=== PATIENT | female | born 1960 | race Caucasian/White ===

== ENCOUNTER → 2016-08-10 | Outpatient (CLI) | payer OTHER ==
[~2016-08-10] MED LIST: ADVIN10/60 INH; ALBU18002 INH; ALBUAER19 INH; ATOR-22 PO; BUPR-102 PO; BUPR-79 PO; CONJ.6255 PO; ERGO1CAP41 PO; EZET10TA66 PO; GLCSR/500 PO; LEVO112T2 PO; LEVO112T4 PO; LPR25 PO; ONDA4TAB7 SL; PANT40TA PO; PRT/40 PO; RANI300T PO; TELM1TAB8 PO; TELM40TA PO
[2016-08-10 12:47] LABS: ALT/SGPT 34 U/L (12-78); BLOOD UREA NITROGEN 18 mg/dl (7-18); BUN/CREATININE RATIO 20.1 (10-20); CALCIUM 9.4 mg/dl (8.5-10.1); CARBON DIOXIDE 25 mmol/L (21-32); CHLORIDE 103 mmol/L (98-107); CHOLESTEROL 200 mg/dl (0-200); CREATININE 0.88 mg/dl (0.60-1.20); ESTIMATED AVERAGE GLUCOSE 143 mg/dl; GLUCOSE 136 mg/dl (70-99); HA1C FLAG Normal (Normal); POTASSIUM 4.5 mmol/L (3.5-5.1); SODIUM 137 mmol/L (136-145); TRIGLYCERIDES 134 mg/dl (0-150); VERY LOW DENSITY LIPOPROT CALC 27 mg/dl
[2016-08-10 12:57] LABS: ALB/GLOB RATIO 1.2 (0.9-2); ALKALINE PHOSPHATASE 126 U/L (45-117); AST/SGOT 22 U/L (15-37); CHOLESTEROL/HDL RATIO 3.4; HDL CHOLESTEROL 58 mg/dl; LDL CHOLESTEROL CALCULATED 115 mg/dl; THYROID STIMULATING HORMONE 0.326 uIu/ml (0.300-4.500)
== END | disposition home or self-care (01) ==
LOC: C.LABBFT 07:42
PROVIDERS: ATTEND Internal Medicine
DX: E11.9 Type 2 diabetes mellitus without complications (principal); E55.9 Vitamin D deficiency, unspecified

== ENCOUNTER → 2016-11-10 | Outpatient (CLI) | payer OTHER ==
[~2016-11-10] MED LIST changes: -ERGO1CAP41 PO; +ERGO500011 PO; +PANT40TA2 PO; -PRT/40 PO
--- NOTE | 2016-11-10 14:10 | MAMMOGRAPHY REPORT ---
UNILATERAL LEFT DIGITAL DIAGNOSTIC MAMMOGRAM TOMOSYNTHESIS WITH CAD AND TARGETED LEFT ULTRASOUND: CLINICAL HISTORY: The patient reports intermittent left breast pain for approximately 2-3 months, wh ich is predominantly in the lateral breast and behind the nipple. She denies any nipple discharge o r palpable lumps. TECHNIQUE: Breast tomosynthesis in addition to standard 2D mammography was performed. Current study was also evaluated with a Computer Aided Detection (CAD) system. Left CC and MLO 2-D and tomosynth esis images were obtained. COMPARISON: Comparison is made to exams dated: 05/25/2016 mammogram, 09/24/2014 mammogram, 3 mammogram - [facility], and 08/23/2008. BREAST COMPOSITION: The tissue of the left breast is almost entirely fatty. FINDINGS: There are no suspicious masses, calcifications, or areas of architectural distortion seen mammographically. There has been no significant interval change compared to prior exams. Targeted ultrasound was performed of the areas of pain pointed out by the patient, involving the lef t lateral breast from approximately 2 to 4:00, centered around 7 cm from the nipple, as well as the left subareolar breast. Sonographically normal tissue is seen in these regions, without evidence of a mass or other suspicious sonographic abnormality. IMPRESSION: ACR BI-RADS CATEGORY 1: NEGATIVE, TARGETED ULTRASOUND ACR BI-RADS CATEGORY 1: NEGATIVE No suspicious mammographic or sonographic abnormality at the site of left breast pain pointed out by the patient. There is no mammographic or targeted sonographic evidence of malignancy. Recommend c linical follow-up for left breast pain, and recommend routine bilateral screening mammograms which a re due May 2017. The patient has been verbally notified of the results. Approximately 10% of breast cancers are not detected with mammography. A negative mammographic repor t should not delay biopsy if a clinically suggestive mass is present. Nina Espinoza M.D. 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
== END | disposition home or self-care (01) ==
LOC: C.MAMM 07:58
PROVIDERS: ATTEND Nurse Practitioner
DX: N64.4 Mastodynia (principal)

== ENCOUNTER 2017-01-07 09:34 | Emergency (ER) | payer OTHER ==
[~2017-01-07] VITALS: Ht 170.2 cm; Wt 118.0 kg
[~2017-01-07 09:34] MED LIST changes: -ALBU18002 INH; -BUPR-102 PO; -ERGO500011 PO; -EZET10TA66 PO; -GLCSR/500 PO; -LEVO112T4 PO; -PANT40TA2 PO; -RANI300T PO; -TELM1TAB8 PO
[2017-01-07 09:43] VITALS: TEMP 36.8; Ht 170.2 cm; Wt 118.0 kg
[2017-01-07] MEDS ORDERED: LORAZEPAM 0.5 MG TAB SL STA (09:43)
[2017-01-07] MEDS ORDERED: NITROGLYCERIN 0.4 MG SL PER TAB CHARGE SL STA (09:43)
[2017-01-07] MEDS ORDERED: GI COCKTAIL PO STA (09:43)
[2017-01-07] MEDS ORDERED: LIDOCAINE HCL 2% VISC SOLN 20 ML UDC ONE (09:47)
[2017-01-07] MEDS ORDERED: ALUMINUM/MAGNESIUM SUSP 30 ML UDC ONE (09:47)
[2017-01-07 10:00] LABS: BASO % 0.6 %; BASO ABS # 0.03 K/uL (0-0.2); COMPLETE YES; EOS % 2.5 %; HEMATOCRIT 42.1 % (37-47); LYMPH % 38.3 %; LYMPH ABS # 2.01 K/uL (1.2-3.4); MEAN CELL VOLUME 84.9 fL (80-100); MEAN CORPUSCULAR HEMOGLOBIN 28.8 pg (25-34); MEAN PLATELET VOLUME 10.1 fL (7.4-10.4); MONO % 6.3 %; NEUT % 52.3 %; PLATELET COUNT 223 K/uL (130-400); RED BLOOD COUNT 4.96 M/uL (4.2-5.4); WHITE BLOOD COUNT 5.25 K/uL (4.8-10.8)
--- NOTE | 2017-01-07 10:00 | DIAGNOSTIC IMAGING REPORT ---
CHEST ONE VIEW PORTABLE CLINICAL HISTORY: Chest pain, back pain and shortness of breath. COMPARISON STUDY: Chest radiograph February 07, 2015. FINDINGS: Lung volumes are normal. No pneumothorax or pleural effusion is present. Pulmonary vascularity is normal. Cardiac size is normal. There is no evidence of pulmonary edema. No consolidation is identified. There may be calcific tendinitis of the bilateral rotator cuffs. IMPRESSION: No acute cardiopulmonary findings. Electronically signed by: Nicolas Abdi M.D. 01/07/2017 9:59 AM Dictated Date/Time: 01/07/2017 9:58 AM
[2017-01-07] MEDS ORDERED: LABETALOL HCL IV 5 MG/ML 20ML IV STA (10:03)
--- NOTE | 2017-01-07 10:07 | EMERGENCY ROOM VISIT NOTE ---
History Report prepared by Kim: Elmo Roy Under the Supervision of: Dr. Pola Hernandez M.D. First contact with patient: 09:35 Stated Complaint: CHEST PAIN/BACK PAIN/SOB History of Present Illness The patient is a 56 year old female who presents to the Emergency Room with complaints of intermittent sharp left upper back pain starting this morning. The patient states she additionally had some shortness of breath, nausea, and she was very pale. She states that she is currently less nauseous. The patient denies any aortic problems, leg swelling, calf pain, family or medical history of blood clots, recent travel, and any recent surgeries. Source of History: patient Onset: this morning Position: back (upper) Quality: sharp Timing: intermittent Associated Symptoms: + SOB, + nausea Review of Systems See HPI for pertinent positives & negatives. A total of 10 systems reviewed and were otherwise negative. Past Medical & Surgical Medical Problems: (1) SVT (supraventricular tachycardia) Family History Diabetes mellitus FHx: cancer Hypertension Social History Smoking Status: Never Smoker Marital Status: Housing Status: lives with family Occupation Status: unemployed Current/Historical Medications Scheduled Bupropion Hcl (Smoking Deterre (Bupropion Hcl Sr), 1 TAB PO BID Ergocalciferol (Vitamin D 09384 Unit), 1 CAP PO 2XWK Ezetimibe (Ezetimibe), 1 TAB PO DAILY Levothyroxine Sodium (Levothyroxine Sodium), 1 TAB PO DAILYBB Metformin HCl (Metformin HCl ER), 1 TAB PO BID Metoprolol Tartrate (Lopressor), 25 MG PO BID Pantoprazole (Pantoprazole Sodium), 1 TAB PO DAILY Ranitidine Hcl (Zantac), 1 TAB PO HS Telmisartan (Telmisartan), 1 TAB PO DAILY Scheduled PRN Albuterol Sulfate (Proair Respiclick), 2 PUFFS INH BID PRN for SOB/Wheezing Fluticasone Prop/Salmeterol (Advair Diskus 100/50 60 Dose), 1 PUFF INH BID PRN for cough/sob Allergies Coded Allergies: Amoxicillin (Verified Adverse Reaction, Unknown, nausea, 01/07/17) Diphenhydramine (Verified Adverse Reaction, Unknown, hyper, 01/07/17) Physical Exam Vital Signs Date Time Temp Pulse Resp B/P (MAP) Pulse Ox O2 Delivery O2 Flow Rate FiO2 7/28/17 14:38 71 16 138/78 98 Room Air 01/07/17 12:38 71 18 123/66 98 Room Air 01/07/17 10:20 74 20 132/78 98 Room Air 01/07/17 10:07 239/133 01/07/17 09:59 72 20 261/136 94 Room Air 01/07/17 09:44 73 01/07/17 09:43 36.8 82 20 216/138 97 Nasal Cannula Physical Exam GENERAL: Patient is very anxious appearing appearing and in no acute distress. HEENT: No acute trauma, normocephalic atraumatic, mucous membranes moist, no nasal congestion, no scleral icterus. NECK: No stridor, no adenopathy, no meningismus, trachea is midline. LUNGS: No dyspnea. Clear to auscultation and equal bilaterally. No wheeze, no rhonchi. HEART: Regular rate and rhythm. No murmurs, rubs, gallops appreciated. ABDOMEN: Soft, nontender, bowel sounds positive, no masses appreciated, no peritonitis. BACK: No midline tenderness, no CVA tenderness EXTREMITIES: Normal motion all extremities, no cyanosis, no edema. NEUROLOGIC: Alert and oriented, no acute motor or sensory deficits, no focal weakness, cranial nerves grossly intact. SKIN: No rash, no jaundice, no diaphoresis. Medical Decision & Procedures ER Provider Diagnostic Interpretation: Radiology results and stated below per my review and radiologist interpretation: CHEST ONE VIEW PORTABLE CLINICAL HISTORY: Chest pain, back pain and shortness of breath. COMPARISON STUDY: Chest radiograph February 07, 2015. FINDINGS: Lung volumes are normal. No pneumothorax or pleural effusion is present. Pulmonary vascularity is normal. Cardiac size is normal. There is no evidence of pulmonary edema. No consolidation is identified. There may be calcific tendinitis of the bilateral rotator cuffs. IMPRESSION: No acute cardiopulmonary findings. Electronically signed by: Nicolas Abdi M.D. 01/07/2017 9:59 AM Dictated Date/Time: 01/07/2017 9:58 AM (CHEST FOR PE) ANGIO WITH CLINICAL HISTORY: 56 years-old Female presenting with chest pain. TECHNIQUE: Multidetector CT angiography of the chest was performed after administration of intravenous contrast. 3-D volumetric and maximum intensity projection (MIP) images were subsequently reconstructed for review. IV contrast: 93 mL of Optiray 320. A dose lowering technique was used consistent with the principles of ALARA (as low as reasonably achievable). COMPARISON: 09/22/2012. CT DOSE (mGy.cm): The estimated cumulative dose is 556.83 mGycm. FINDINGS: Sandblast Carver topogram: Unremarkable. Pulmonary vasculature: The study is suboptimal for assessment of the pulmonary vascular tree. No filling defect within the pulmonary arteries to suggest embolus. Main pulmonary artery not enlarged. No flattening of the interventricular septum. No intracardiac filling defect. Remaining chest: On soft tissue windows, normal thyroid and thoracic inlet. No axillary, supraclavicular, hilar, or mediastinal lymphadenopathy. Normal aorta. Multichamber enlargement of the heart. Coronary artery calcification. No pericardial or pleural effusion. Small hiatal hernia. On lung windows, glass opacities dependently in the upper and lower lobes. Pulmonary arteries are dilated relative to the adjacent airways suggesting volume overload. Airways patent. On bone windows, multilevel degenerative changes. Stippled sclerotic lesion in the right humeral head, possibly chondroid lesion. IMPRESSION: 1. No evidence of pulmonary embolus. 2. Dependent groundglass opacities in the upper and lower lobes. This could represent atelectasis, although given the presence of volume overload and cardiomegaly, developing pulmonary edema could appear similarly. 3. Cardiomegaly. Electronically signed by: Antonio Sosa M.D. 01/07/2017 11:25 AM Dictated Date/Time: 01/07/2017 11:08 AM Laboratory Results 01/07/17 09:25 Red Blood Count 4.96, Mean Corpuscular Volume 84.9, Mean Corpuscular Hemoglobin 28.8, Mean Corpuscular Hemoglobin Concent 34.0, Mean Platelet Volume 10.1, Neutrophils (%) (Auto) 52.3, Lymphocytes (%) (Auto) 38.3, Monocytes (%) (Auto) 6.3, Eosinophils (%) (Auto) 2.5, Basophils (%) (Auto) 0.6, Neutrophils # (Auto) 2.75, Lymphocytes # (Auto) 2.01, Monocytes # (Auto) 0.33, Eosinophils # (Auto) 0.13, Basophils # (Auto) 0.03 01/07/17 09:25 Test 01/07/17 09:25 01/07/17 13:58 White Blood Count 5.25 K/uL (4.8-10.8) Red Blood Count 4.96 M/uL (4.2-5.4) Hemoglobin 14.3 g/dL (12.0-16.0) Hematocrit 42.1 % (37-47) Mean Corpuscular Volume 84.9 fL (80-100) Mean Corpuscular Hemoglobin 28.8 pg (25-34) Mean Corpuscular Hemoglobin Concent 34.0 g/dl (32-36) Platelet Count 223 K/uL (130-400) Mean Platelet Volume 10.1 fL (7.4-10.4) Neutrophils (%) (Auto) 52.3 % Lymphocytes (%) (Auto) 38.3 % Monocytes (%) (Auto) 6.3 % Eosinophils (%) (Auto) 2.5 % Basophils (%) (Auto) 0.6 % Neutrophils # (Auto) 2.75 K/uL (1.4-6.5) Lymphocytes # (Auto) 2.01 K/uL (1.2-3.4) Monocytes # (Auto) 0.33 K/uL (0.11-0.59) Eosinophils # (Auto) 0.13 K/uL (0-0.5) Basophils # (Auto) 0.03 K/uL (0-0.2) RDW Standard Deviation 42.5 fL (36.4-46.3) RDW Coefficient of Variation 13.6 % (11.5-14.5) Immature Granulocyte % (Auto) 0.0 % Immature Granulocyte # (Auto) 0.00 K/uL (0.00-0.02) D-Dimer 570 ug/L FEU (0-500) Anion Gap 11.0 mmol/L (3-11) Est Creatinine Clear Calc Drug Dose 84.5 ml/min Estimated GFR () 73.5 Estimated GFR (Non- 63.4 BUN/Creatinine Ratio 17.5 (10-20) Calcium Level 9.8 mg/dl (8.5-10.1) Total Bilirubin 0.5 mg/dl (0.2-1) Direct Bilirubin < 0.1 mg/dl (0-0.2) Aspartate Amino Transf (AST/SGOT) 14 U/L (15-37) Alanine Aminotransferase (ALT/SGPT) 23 U/L (12-78) Alkaline Phosphatase 130 U/L (45-117) Total Creatine Kinase 85 U/L (26-192) Creatine Kinase MB < 0.5 ng/ml (0.5-3.6) Creatine Kinase MB Ratio (0-3.0) Total Protein 7.2 gm/dl (6.4-8.2) Albumin 3.6 gm/dl (3.4-5.0) Lipase 113 U/L (73-393) Troponin I < 0.015 ng/ml (0-0.045) Laboratory results as reviewed by me. Medications Administered Medications (Trade) Dose Ordered Sig/Edelmira Route Start Time Stop Time Status Last Admin Dose Admin Nitroglycerin (Nitrostat Tab) 0.4 mg NOW STAT SL 01/07/17 09:43 01/07/17 09:45 DC 01/07/17 09:58 0.4 MG Lorazepam (Ativan Tab) 0.5 mg NOW STAT SL 01/07/17 09:43 01/07/17 09:45 DC 01/07/17 09:58 0.5 MG Al Hydroxide/Mg Hydroxide (Maalox Susp) 30 ml STK-MED ONCE .ROUTE 01/07/17 09:47 01/07/17 09:48 DC 01/07/17 09:59 30 ML Lidocaine HCl (Viscous Lidocaine 2% Soln) 20 ml STK-MED ONCE .ROUTE 01/07/17 09:47 01/07/17 09:48 DC 01/07/17 09:59 10 ML ECG Indication: back/shoulder pain Rate (beats per minute): 70 Rhythm: sinus rhythm Findings: no acute ischemic change, no ectopy Comparison ECG Date: 02/07/15 Change: The patient now has a 1st degree AV block ED Course 0935: The patient was evaluated in room B6. A complete history and physical exam was performed. 0943: Ativan Tab 0.5mg SL, GI Cocktail 24ml PO, Nitroglycerine Tab 0.4mg SL 0947: Viscous Lidocaine 2% Soln 10ml PO, Maalox Susp 30ml PO 1011: I reevaluated the patient, and she was feeling better, but she was still hypertensive 1022: I reevaluated the patient, and her blood pressure before given labetalol had normalized, so it was not given. The patient had full resolution of her symptoms. 1137: I discussed the patient's case with Dr. Sam, and he recommends waiting for a repeat troponin. 1201: I reevaluated the patient, and she was feeling fine and agreeable to repeat troponin. 1431: Reevaluated the patient. Discussed results and discharge instructions: She verbalized understanding and agreement. The patient is ready for discharge. Medical Decision Differential: Cardiac Ischemia (STEMI, NSTEMI, Unstable Angina, etc), Aortic Dissection, Arrhythmia, Pulmonary Embolism, Pneumonia, Pneumothorax, MSK, Infectious, Pericarditis/Myocarditis, Esophageal Rupture, Gastrointestinal, amongst other pathologies entertained. 56 yr old female arrives with left chest pain radiating to back with shortness of breath, severe anxiety and quite hypertensive. 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 No further issues during stay with BP nor symptoms. EKG OK, trop x 2 (6+ hours post initial symptoms). CT done as elevated dimer in setting of pleuritic chest pain. CAD noted by CT along with some questionable pulm edema and enlarged heart. She is not having any shob nor hypoxia during rest of stay. She will follow up with PCP as well as Aircraft Skin Burnisher which was set up. We reviewed at length symptoms requiring return including any chest pain, shob, syncope, etc. Medication Reconcilliation Current Medication List: was personally reviewed by me Blood Pressure Screening Patient's blood pressure: Elevated blood pressure Blood pressure disposition: Referred to PCP Consults Time Called: 1133 Consulting Physician: Dr. Sam Returned Call: 1134 I discussed the patient's case with Dr. Sam, and he recommends waiting for a repeat troponin. Impression Primary Impression: Substernal chest pain Additional Impressions: Shortness of breath Coronary artery calcification Cardiomegaly Hypertension Scribe Attestation The scribe's documentation has been prepared under my direction and personally reviewed by me in its entirety. I confirm that the note above accurately reflects all work, treatment, procedures, and medical decision making performed by me. Departure Information Dispostion Home / Self-Care Referrals Chuck Oshea M.D. (PCP) Derrick Sam MD Forms IMPORTANT VISIT INFORMATION Patient Instructions My [facility] Additional Instructions Your labs revealed no evidence of heart damage. Your blood pressure was severely elevated on arrival which may explain some of CT findings. You will need to discuss the high blood pressure, calcifications of arteries, enlarged heart with front end alignment specialist. This is very important. However it is very important you follow up with your primary care provider and front end alignment specialist to have further evaluation. Your blood pressure was elevated during this visit. This is quite common in many people who are being evaluated in the Emergency Department for many reasons. However, it is important that you have your Primary Care Provider recheck your blood pressure and discuss whether treatment will be needed. rn long term care elevated blood pressure can lead to strokes, heart attacks, kidney failure amongst other medical issues. If you develop severe headaches, chest pain, weakness in arms or legs, or other concerning symptoms call 911. Problem Qualifiers Additional Impressions: Hypertension Hypertension type: unspecified Qualified Codes: I10 - Essential (primary) hypertension
[2017-01-07 10:18] LABS: ALT/SGPT 23 U/L (12-78); BLOOD UREA NITROGEN 18 mg/dl (7-18); BUN/CREATININE RATIO 17.5 (10-20); CALCIUM 9.8 mg/dl (8.5-10.1); CARBON DIOXIDE 24 mmol/L (21-32); CHLORIDE 106 mmol/L (98-107); GLUCOSE 182 mg/dl (70-99); POTASSIUM 4.3 mmol/L (3.5-5.1); SODIUM 141 mmol/L (136-145)
[2017-01-07 10:24] LABS: ALKALINE PHOSPHATASE 130 U/L (45-117); AST/SGOT 14 U/L (15-37)
[2017-01-07] MEDS ORDERED: OPTIRAY 320 IV PRN (10:30)
[2017-01-07] MEDS ORDERED: GLCSR/500 PO (11:12)
[2017-01-07] MEDS ORDERED: RANI300T PO (11:12)
[2017-01-07] MEDS ORDERED: PRT/40 PO (11:12)
[2017-01-07] MEDS ORDERED: TELM1TAB8 PO (11:12)
[2017-01-07] MEDS ORDERED: ERGO1CAP41 PO (11:12)
[2017-01-07] MEDS ORDERED: EZET10TA66 PO (11:12)
[2017-01-07] MEDS ORDERED: BUPR-102 PO (11:12)
[2017-01-07] MEDS ORDERED: LEVO112T4 PO (11:12)
[2017-01-07] MEDS ORDERED: ALBU18002 INH (11:14)
--- NOTE | 2017-01-07 11:26 | DIAGNOSTIC IMAGING REPORT ---
(CHEST FOR PE) ANGIO WITH CLINICAL HISTORY: 56 years-old Female presenting with chest pain. TECHNIQUE: Multidetector CT angiography of the chest was performed after administration of intravenous contrast. 3-D volumetric and maximum intensity projection (MIP) images were subsequently reconstructed for review. IV contrast: 93 mL of Optiray 320. A dose lowering technique was used consistent with the principles of ALARA (as low as reasonably achievable). COMPARISON: 09/22/2012. CT DOSE (mGy.cm): The estimated cumulative dose is 556.83 mGycm. FINDINGS: Human Relations Professor topogram: Unremarkable. Pulmonary vasculature: The study is suboptimal for assessment of the pulmonary vascular tree. No filling defect within the pulmonary arteries to suggest embolus. Main pulmonary artery not enlarged. No flattening of the interventricular septum. No intracardiac filling defect. Remaining chest: On soft tissue windows, normal thyroid and thoracic inlet. No axillary, supraclavicular, hilar, or mediastinal lymphadenopathy. Normal aorta. Multichamber enlargement of the heart. Coronary artery calcification. No pericardial or pleural effusion. Small hiatal hernia. On lung windows, glass opacities dependently in the upper and lower lobes. Pulmonary arteries are dilated relative to the adjacent airways suggesting volume overload. Airways patent. On bone windows, multilevel degenerative changes. Stippled sclerotic lesion in the right humeral head, possibly chondroid lesion. IMPRESSION: 1. No evidence of pulmonary embolus. 2. Dependent groundglass opacities in the upper and lower lobes. This could represent atelectasis, although given the presence of volume overload and cardiomegaly, developing pulmonary edema could appear similarly. 3. Cardiomegaly. Electronically signed by: Antonio Sosa M.D. 01/07/2017 11:25 AM Dictated Date/Time: 01/07/2017 11:08 AM
[2017-01-07 14:38] VITALS: BP 138/78; PULSE 71; O2SAT 98
== END 2017-01-07 14:56 | disposition home or self-care (01) ==
LOC: C.EDB 09:34 → EDBD 09:34 → C.EDB 14:56
DX: R07.2 Precordial pain (principal); R06.02 Shortness of breath; I25.84 Coronary atherosclerosis due to calcified coronary lesion; I51.7 Cardiomegaly; I10 Essential (primary) hypertension; I47.1 Supraventricular tachycardia; I44.0 Atrioventricular block, first degree; Z79.84 Long term (current) use of oral hypoglycemic drugs; Z83.3 Family history of diabetes mellitus; Z82.49 Family history of ischemic heart disease and other diseases of the circulatory system

== ENCOUNTER → 2017-03-04 | Outpatient (CLI) | payer OTHER ==
[~2017-03-04] VITALS: Ht 170.2 cm; Wt 116.3 kg
[~2017-03-04] MED LIST changes: +ALBU18002 INH; -ALBUAER19 INH; -ATOR-22 PO; +BUPR-102 PO; -BUPR-79 PO; -CONJ.6255 PO; +ERGO1CAP41 PO; +EZET10TA66 PO; +GLCSR/500 PO; -LEVO112T2 PO; +LEVO112T4 PO; -ONDA4TAB7 SL; -PANT40TA PO; +PRT/40 PO; +RANI300T PO; +TELM1TAB8 PO; -TELM40TA PO
[2017-03-04 15:03] VITALS: BP 146/84; PULSE 67; Ht 170.2 cm; Wt 116.3 kg
== END | disposition home or self-care (01) ==
LOC: C.NEUR 13:30
PROVIDERS: ATTEND Internal Medicine Pulmonary Disease
DX: G47.33 Obstructive sleep apnea (adult) (pediatric) (principal); R41.3 Other amnesia; R53.83 Other fatigue

== ENCOUNTER → 2017-03-17 | Outpatient (CLI) | payer OTHER ==
[2017-03-17 12:39] LABS: HEMATOCRIT 41.1 % (37-47); MEAN CELL VOLUME 85.3 fL (80-100); MEAN CORPUSCULAR HEMOGLOBIN 28.8 pg (25-34); MEAN CORPUSCULAR HGB CONC 33.8 g/dl (32-36); MEAN PLATELET VOLUME 9.9 fL (7.4-10.4); PLATELET COUNT 219 K/uL (130-400); RED BLOOD COUNT 4.82 M/uL (4.2-5.4); WHITE BLOOD COUNT 4.69 K/uL (4.8-10.8)
[2017-03-17 13:48] LABS: ALT/SGPT 19 U/L (12-78); AST/SGOT 13 U/L (15-37); BLOOD UREA NITROGEN 18 mg/dl (7-18); BUN/CREATININE RATIO 20.8 (10-20); CALCIUM 9.5 mg/dl (8.5-10.1); CARBON DIOXIDE 26 mmol/L (21-32); CHLORIDE 105 mmol/L (98-107); CREATININE 0.89 mg/dl (0.60-1.20); GLUCOSE 127 mg/dl (70-99); POTASSIUM 4.6 mmol/L (3.5-5.1); SODIUM 139 mmol/L (136-145)
[2017-03-17 13:59] LABS: ALB/GLOB RATIO 1.2 (0.9-2); ALKALINE PHOSPHATASE 127 U/L (45-117); CHOLESTEROL 195 mg/dl (0-200); CHOLESTEROL/HDL RATIO 3.4; HDL CHOLESTEROL 58 mg/dl; LDL CHOLESTEROL CALCULATED 112 mg/dl; THYROID STIMULATING HORMONE 0.171 uIu/ml (0.300-4.500); TRIGLYCERIDES 126 mg/dl (0-150); VERY LOW DENSITY LIPOPROT CALC 25 mg/dl
[2017-03-17 15:49] LABS: RATIO 5.9 mcg/mg (0-30.0)
== END | disposition home or self-care (01) ==
LOC: C.LABBFT 07:20
PROVIDERS: ATTEND Internal Medicine
DX: E11.9 Type 2 diabetes mellitus without complications (principal)

== ENCOUNTER → 2017-05-03 | Outpatient (CLI) | payer OTHER ==
[~2017-05-03] MED LIST changes: -ERGO1CAP41 PO; +ERGO500011 PO; +PANT40TA2 PO; -PRT/40 PO
== END | disposition home or self-care (01) ==
LOC: C.PAPS 10:12
PROVIDERS: ATTEND Obstetrics & Gynecology
DX: Z12.4 Encounter for screening for malignant neoplasm of cervix (principal)

== ENCOUNTER → 2017-08-10 | Outpatient (CLI) | payer BC ==
--- NOTE | 2017-08-12 13:46 | POLYSOMNOGRAPH REPORT ---
CLINICAL DATA: A 56-year-old female with BMI of [address] Parmjit Louise for a sleep study to determine the efficacy of her oral appliance. Her current [place] sleepiness score is 16/24. This sleep study was done with her oral appliance in place. On the evening of 08/02/2017, a home sleep apnea test was performed using a [employer] type 3 monitor. RECORDING RESULTS: Total recording time was 9.4 hours. The patient's monitoring time and estimated sleep time was 7.7 hours. RESPIRATORY DATA: Severe sleep apnea was documented. The MATT was 31.2. There were 48 obstructive, 13 mixed, and 2 central apneic episodes. There 172 hypopneic episodes. The longest respiratory event was 53 seconds. OXIMETRY DATA: Very mild hypoxemia was seen. Oxygen mayra was 86%. Mean saturation was 94%. Time below 89% was 2 minutes. HEART RATE DATA: Heart rates ranged from 50-66 beats per minute. SNORING DATA: Snoring was recorded throughout the night. IMPRESSION: Severe sleep apnea/hypopnea with an MATT of 31.2. It appears that her oral appliance is not as effective as it could be. RECOMMENDATIONS: The patient could have readjustment of her oral appliance or consider use of CPAP/auto CPAP. Clinical correlation is needed. AHMET
== END | disposition home or self-care (01) ==
LOC: C.NEUR 08:50
PROVIDERS: ATTEND Internal Medicine Pulmonary Disease
DX: G47.33 Obstructive sleep apnea (adult) (pediatric) (principal)

== ENCOUNTER → 2017-09-28 | Outpatient (CLI) | payer BC | END | disposition home or self-care (01) | LOC: C.RDSM 20:20 | PROVIDERS: ATTEND Family Medicine Sports Medicine | DX: M54.5 Low back pain (principal); R20.0 Anesthesia of skin ==

== ENCOUNTER → 2017-10-05 | Outpatient (CLI) | payer BC ==
[2017-10-05 12:15] LABS: BASO % 0.9 %; BASO ABS # 0.04 K/uL (0-0.2); EOS % 3.2 %; EOS ABS # 0.14 K/uL (0-0.5); HEMATOCRIT 42.7 % (37-47); LYMPH % 48.4 %; LYMPH ABS # 2.12 K/uL (1.2-3.4); MEAN CELL VOLUME 85.6 fL (80-100); MEAN CORPUSCULAR HEMOGLOBIN 28.1 pg (25-34); MEAN CORPUSCULAR HGB CONC 32.8 g/dl (32-36); MEAN PLATELET VOLUME 9.8 fL (7.4-10.4); MONO % 9.6 %; MONO ABS # 0.42 K/uL (0.11-0.59); NEUT % 37.9 %; NEUT ABS # 1.66 K/uL (1.4-6.5); PLATELET COUNT 216 K/uL (130-400); RED CELL DISTRIBUTION WIDTH CV 14.2 % (11.5-14.5); RED CELL DISTRIBUTION WIDTH SD 43.8 fL (36.4-46.3); WHITE BLOOD COUNT 4.38 K/uL (4.8-10.8)
[2017-10-05 12:39] LABS: HEMOGLOBIN A1C 6.9 % (4.5-5.6)
[2017-10-05 13:28] LABS: ALT/SGPT 26 U/L (12-78); AST/SGOT 15 U/L (15-37); BLOOD UREA NITROGEN 19 mg/dl (7-18); CALCIUM 9.6 mg/dl (8.5-10.1); CARBON DIOXIDE 25 mmol/L (21-32); CHOLESTEROL 199 mg/dl (0-200); GLUCOSE 150 mg/dl (70-99); LDL CHOLESTEROL CALCULATED 116 mg/dl; POTASSIUM 4.4 mmol/L (3.5-5.1); SODIUM 138 mmol/L (136-145)
[2017-10-05 13:39] LABS: ALKALINE PHOSPHATASE 129 U/L (45-117); TOTAL PROTEIN 7.4 gm/dl (6.4-8.2)
== END | disposition home or self-care (01) ==
LOC: C.LABBFT 07:42
PROVIDERS: ATTEND Internal Medicine
DX: E11.9 Type 2 diabetes mellitus without complications (principal)